=== PATIENT | male | born 1960 | race Caucasian/White ===

== ENCOUNTER 2016-09-29 08:44 | Day surgery (SDC) | payer OTHER ==
[~2016-09-29 08:44] MED LIST: FENTANYL 250 MCG/5 ML AMP IV PRN; LACTATED RINGERS 1,000 ML IV SCH; MIDAZOLAM HCL 5 MG/5 ML VIAL IV PRN
[2016-09-29] MEDS ORDERED: IV START KIT ONE (09:03)
[2016-09-29] MEDS ORDERED: LACTATED RINGERS 1,000 ML ONE (09:03)
[2016-09-29] MEDS ORDERED: MIDAZOLAM HCL 5 MG/5 ML VIAL ONE (09:58)
[2016-09-29] MEDS ORDERED: FENTANYL 5 ML ONE (09:59)
--- NOTE | 2016-10-01 13:56 | SURGPATH ---
[facility] [address] [place] [id number] Patient Name: NICOLE ESCUDERO MR#: [id number] : 1960 Gender: M Specimen #: [id number] Collected: 09/29/2016 Received: 09/30/2016 Reported: 10/01/2016 Submitting Phys: RACHAEL NOONAN Copy To Phys: [facility] JOSE MARTINEZ Clinical History / Pre-Operative Diagnosis: HISTORY OF COLON POLYPS Specimen Source / Surgical Procedure Performed: #1-SIGMOID POLYP AT 30 CM; #8-LUJBWD-QEKKLKL POLYP AT 12 CM; #3-RECTAL POLYP AT 6 CM; #4-RECTAL POLYP AT 2 CM Interpretation: 1. SIGMOID COLON, POLYP AT 30 CM, BIOPSY: - SESSILE SERRATED POLYP 2. RECTOSIGMOID POLYP, 12 CM, BIOPSY: - HYPERPLASTIC POLYP 3. RECTUM, POLYP AT 6 CM, BIOPSY: - HYPERPLASTIC POLYP 4. RECTUM, POLYP AT 2 CM, BIOPSY: - HYPERPLASTIC POLYP Electronically Signed Out Rosario Ayala M.D. Gross Description: #1 The specimen is received in a formalin filled container labeled with the patient's name and "sigmoid polyp at 30 cm". A polypoid marie biopsy is 0.6 x 0.5 x 0.2 cm. Bisected. Totally embedded in cassette #1. #2 The specimen is received in a formalin filled container labeled with the patient's name and "recto-sigmoid polyp at 12 cm". A polypoid red-marie biopsy is 0.4 x 0.4 x 0.3 cm. Totally embedded in cassette #2. #3 The specimen is received in a formalin filled container labeled with the patient's name and "rectal polyp at 6 cm". Two polypoid pink-marie biopsy fragments are 0.3 x 0.3 x 0.2 cm and 0.5 x 0.4 x 0.4 cm. The larger biopsy is bisected. Totally embedded in cassette #3. #4 The specimen is received in a formalin filled container labeled with the patient's name and "rectal polyp at 2 cm". A flat pale marie biopsy is 0.5 x 0.4 x 0.1 cm and a polypoid dark pink-marie biopsy is 0.8 x 0.6 x 0.5 cm. The larger biopsy is bisected. Totally embedded in cassette #4. Orion Lozoya. Microscopic Description: 1. Sections show fragments of colonic mucosa with serrated crypt architecture but no cytologic atypia. 2. Sections show fragments of hyperplastic colonic mucosa without dysplasia. 3. Sections show fragments of hyperplastic colonic mucosa without dysplasia. 4. Sections show fragments of hyperplastic colonic mucosa without dysplasia. 1: 55159 2: 68303 3: 70265 4: 10720 K62.1
== END 2016-09-29 11:06 | disposition home or self-care (01) ==
LOC: SDC 08:44
PROVIDERS: ATTEND Internal Medicine Gastroenterology
PROC: 0DBM8ZX Excision of Descending Colon, Via Natural or Artificial Opening Endoscopic, Diagnostic (ICD-10-PCS; principal; 2016-09-29)
PROC: 0DBE8ZX Excision of Large Intestine, Via Natural or Artificial Opening Endoscopic, Diagnostic (ICD-10-PCS; 2016-09-29)
PROC: 0DBP8ZX Excision of Rectum, Via Natural or Artificial Opening Endoscopic, Diagnostic (ICD-10-PCS; 2016-09-29)
PROC: 0DBN8ZX Excision of Sigmoid Colon, Via Natural or Artificial Opening Endoscopic, Diagnostic (ICD-10-PCS; 2016-09-29)
DX: Z12.11 Encounter for screening for malignant neoplasm of colon (principal); D12.4 Benign neoplasm of descending colon; D12.5 Benign neoplasm of sigmoid colon; D12.7 Benign neoplasm of rectosigmoid junction; D12.8 Benign neoplasm of rectum; K64.1 Second degree hemorrhoids; Z86.010 Personal history of colon polyps; J44.9 Chronic obstructive pulmonary disease, unspecified; E03.9 Hypothyroidism, unspecified
CPT/HCPCS: 45385; J3010; J2250; J7120